=== PATIENT | female | born 1985 | race Caucasian/White ===

== ENCOUNTER 2016-10-11 09:52 | Emergency (ER) | payer BC ==
[~2016-10-11] VITALS: Ht 172.7 cm; Wt 104.0 kg
[~2016-10-11 09:52] MED LIST: FISH OIL 1000MG1 CAP PO; GLUCOPHAGE1000 MG PO; IRON325 M2 PO; LORTAB 5/500 501 TAB PO; MERIBIN5 MG PO; MOTRIN 600600 MG/TAB PO; PENICILLIN V250 MG PO; PRENATAL1 TA7 PO; STOOL SOFTENER100 M2 PO
[2016-10-11 10:10] VITALS: TEMP 98.4
[2016-10-11] MEDS ORDERED: NATURAL IRON65 MG PO (11:30)
[2016-10-11] MEDS ORDERED: PEPCID 20MG TAB20 MG PO (11:32)
[2016-10-11] MEDS ORDERED: ZYRTEC 10MG10 MG PO (11:33)
[2016-10-11 12:00] LABS: BASO % 0.2 % (0.0-2.0); EOS # 0.1 (0.0-0.7); EOS % 1.2 % (0-4.0); GRAN # 6.9 (1.4-6.5); GRAN % 80.3 % (42.2-75.2); LYMPH % 11.4 % (20.0-51.0); MEAN CELL VOLUME 89 fl (80.0-100.0); MEAN CORPUSCULAR HGB CONC 35 g/dl (33.0-37.0); MEAN PLATELET VOLUME 8.6 fl (7.4-10.4); MONO # 0.5 (0.1-0.6); MONO % 5.7 % (1.7-9.3); PLATELET COUNT 220 K/mm3 (130-400); RED BLOOD COUNT 3.63 M/mm3 (4.10-5.30); REDCELL DISTRIBUTION WIDTH-CV 13.7 % (11.5-14.5); WHITE BLOOD COUNT 8.5 K/mm3 (4.8-10.8)
[2016-10-11 12:06] LABS: HEMATOCRIT 32.2 % (37.0-47.0); HEMOGLOBIN 11.2 g/dl (12.5-16.0); MEAN CORPUSCULAR HEMOGLOBIN 31 pg (27.0-31.0)
[2016-10-11 12:15] LABS: ADJUSTED CALCIUM 8.6 mg/dL (8.4-10.2); ALBUMIN 3.7 gm/dL (3.5-5.0); BILIRUBIN,TOTAL 0.7 mg/dL (0.0-1.0); CALCIUM 8.4 mg/dL (8.4-10.2); CREATININE, serum 0.52 mg/dL (0.52-1.25); POTASSIUM 3.5 mmol/L (3.4-5.0)
[2016-10-11 13:50] LABS: PH 6 (5-8); URINE APPEARANCE Cloudy; URINE BACTERIA Rare /hpf; URINE BILIRUBIN Negative (NEGATIVE); URINE BLOOD Negative (NEGATIVE); URINE COLOR Yellow; URINE GLUCOSE Negative (NEGATIVE); URINE KETONE 1+ (NEGATIVE); URINE UROBILINOGEN Negative (NEGATIVE)
[2016-10-11] MEDS ORDERED: MACROBID 1100 MG/CAP PO (13:57)
[2016-10-11 14:14] VITALS: BP 93/54; PULSE 84
== END 2016-10-11 14:14 | disposition home or self-care (01) ==
LOC: COL.ER 09:52
PROVIDERS: Physician Assistant
DX: O23.43 Unspecified infection of urinary tract in pregnancy, third trimester (principal); O21.0 Mild hyperemesis gravidarum; Z3A.29 29 weeks gestation of pregnancy
CPT/HCPCS: J2550; J7030

== ENCOUNTER → 2016-11-26 | Outpatient (CLI) | payer BC ==
[~2016-11-26] MED LIST changes: +IBU800 M1 PO; +MACROBID 1100 MG/CAP PO; +NATURAL IRON65 MG PO; +PEPCID 20MG TAB20 MG PO; +PRILOTC; +ZYRTEC 10MG10 MG PO
== END ==
LOC: LDRO 15:36
DX: Z53.9 Procedure and treatment not carried out, unspecified reason (principal)

== ENCOUNTER 2016-12-22 10:09 | Inpatient (IN) | payer BC ==
[~2016-12-22] VITALS: Ht 172.7 cm; Wt 110.9 kg
[2016-12-22] VITALS (28 sets, daily range): BP systolic 102–140; BP diastolic 56–96; PULSE 85–118; TEMP 97.2–98.4
[~2016-12-22 10:09] MED LIST changes: -IBU800 M1 PO; -PRILOTC
[2016-12-22 11:04] LABS: BASO % 0.3 % (0.0-2.0); EOS # 0.1 (0.0-0.7); EOS % 0.6 % (0-4.0); GRAN # 8.1 (1.4-6.5); GRAN % 72.5 % (42.2-75.2); LYMPH # 2.2 (1.2-3.4); LYMPH % 19.7 % (20.0-51.0); MEAN CELL VOLUME 88 fl (80.0-100.0); MEAN CORPUSCULAR HGB CONC 33 g/dl (33.0-37.0); MEAN PLATELET VOLUME 8.9 fl (7.4-10.4); MONO # 0.7 (0.1-0.6); MONO % 6.2 % (1.7-9.3); PLATELET COUNT 243 K/mm3 (130-400); RED BLOOD COUNT 3.62 M/mm3 (4.10-5.30); REDCELL DISTRIBUTION WIDTH-CV 13.4 % (11.5-14.5); WHITE BLOOD COUNT 11.2 K/mm3 (4.8-10.8)
[2016-12-22] MEDS ORDERED: PRILOTC (11:04)
[2016-12-22 11:11] LABS: HEMATOCRIT 31.8 % (37.0-47.0); HEMOGLOBIN 10.6 g/dl (12.5-16.0); MEAN CORPUSCULAR HEMOGLOBIN 29 pg (27.0-31.0)
[2016-12-23 00:40] VITALS: BP 103/62; PULSE 79
[2016-12-23 05:00] VITALS: BP 93/48; PULSE 82; TEMP 98.2
[2016-12-23 08:15] VITALS: BP 117/73; PULSE 63; TEMP 98.3
[2016-12-23 11:37] VITALS: BP 123/74; PULSE 101; TEMP 98.5
[2016-12-23 16:44] VITALS: BP 120/67; PULSE 101; TEMP 98.3
[2016-12-23 20:00] VITALS: BP 113/67; PULSE 88; TEMP 98.1
[2016-12-24] MEDS ORDERED: IBU800 M1 PO (08:09)
[2016-12-24 08:24] VITALS: BP 113/81; PULSE 96; TEMP 97.8
== END 2016-12-24 16:00 | disposition home or self-care (01) | DRG 775 ==
LOC: OB 10:09 → LDR 10:09 → OB 20:00
PROVIDERS: Obstetrics & Gynecology
PROC: 10E0XZZ Delivery of Products of Conception, External Approach (ICD-10-PCS; principal; 2016-12-22)
PROC: 0KQM0ZZ Repair Perineum Muscle, Open Approach (ICD-10-PCS; 2016-12-22)
DX: O99.824 Streptococcus B carrier state complicating childbirth (principal); O70.1 Second degree perineal laceration during delivery; Z3A.39 39 weeks gestation of pregnancy; Z37.0 Single live birth
CPT/HCPCS: J2540; J2590; J7120

== ENCOUNTER → 2019-06-09 | Outpatient (CLI) | payer BC ==
[~2019-06-09] MED LIST changes: +IBU800 M1 PO; +PRILOTC
== END ==
LOC: COL.RAD 12:01
DX: M77.41 Metatarsalgia, right foot (principal)

== ENCOUNTER 2023-12-10 23:27 | Inpatient (IN) | payer BC ==
[~2023-12-10] VITALS: Ht 172.7 cm; Wt 115.0 kg
--- NOTE | 2023-12-10 23:40 | NUR ---
G5L2. 37.1. Ambulatory to LDR 5 with spouse. Clean gown on. EFM and TOCO explained and applied. Pt states she thinks her water broke at 2250. Reports clear fluid. Denies having any consistent contractions or vaginal bleeding. Reports good movement. Plan of care explained. 2353: called and updated on pt's status. See physican notification. Admit orders received. Pt updated on plan of care. 0030: IV started and labs obtained via IV site. Pt stating she is starting to feel some cramping and would like to wait on starting pitocin. 0215: on unit and updated on pt's request on waiting with starting pitocin. 0247: SVE /-3. Pt wanting to ambulate in hallway prior to starting pitocin.
[2023-12-11] VITALS (36 sets, daily range): BP systolic 101–132; BP diastolic 55–87; PULSE 66–120; TEMP 97.3–98.1
[2023-12-11] MEDS ORDERED: IRON 27 MG PO (00:20)
[2023-12-11] MEDS ORDERED: PRENATAL MVI PO (00:21)
[2023-12-11] MEDS ORDERED: LR 1,000 ML IV SCH (00:30)
[2023-12-11] MEDS ORDERED: LR & Oxytocin 500 ML IV SCH (00:30)
[2023-12-11 01:08] LABS: BASO % 0.3 % (0.0-2.0); EOS # 0.1 K/mm3 (0.0-0.7); EOS % 0.7 % (0.0-4.0); GRAN % 73.1 % (42.2-75.2); HEMOGLOBIN 10.8 g/dl (12.5-16.0); LYMPH # 1.9 K/mm3 (1.2-3.4); LYMPH % 19.4 % (20.0-51.0); MEAN CELL VOLUME 88 fl (80.0-100.0); MEAN CORPUSCULAR HEMOGLOBIN 29 pg (27-31); MEAN CORPUSCULAR HGB CONC 33 g/dl (33.0-37.0); MONO # 0.6 K/mm3 (0.1-0.6); MONO % 6.1 % (1.7-9.3); PLATELET COUNT 219 K/mm3 (130-400); RED BLOOD COUNT 3.68 M/mm3 (4.10-5.30); REDCELL DISTRIBUTION WIDTH-CV 13.9 % (11.5-14.5)
[2023-12-11 01:09] LABS: HEMATOCRIT 32.4 % (37.0-47.0)
--- NOTE | 2023-12-11 04:17 | NUR ---
Pitocin explained and started at 2mu/hr per protocol. Questions answered. Call light within reach.
--- NOTE | 2023-12-11 06:00 | NUR ---
Pt requesting an epidural. LR bolus infusing. Shaheen FILM MAKER notified.
[2023-12-11] MEDS ORDERED: ROPivacaine PF 0.2% 200 ML IV ONE (06:17)
[2023-12-11] MEDS ORDERED: NS 10 ML IV ONE (06:18)
--- NOTE | 2023-12-11 06:45 | NUR ---
Oseas [employer] SAL[employer] PROFESSIONAL to bedside at 0620. Patient repositioned sitting at bedside for epidural placement. Test dose given at 0632. Patient tolerated well. FHM tracing maternal heart rate during this time. Patient repositioned low fowlers. Denies needs at this time.
[2023-12-11] MEDS ORDERED: Ondansetron 4 MG/2 ML VIAL IV PRN (07:00)
[2023-12-11] MEDS ORDERED: diphenhydrAMINE 25 MG CAP PO PRN (07:00)
[2023-12-11] MEDS ORDERED: Naloxone 0.4 MG/ML VIAL IV PRN ×2 (07:00→10:15)
[2023-12-11] MEDS ORDERED: ePHEDrine 50 MG/10 ML VIAL IV PRN (07:00)
[2023-12-11] MEDS ORDERED: diphenhydrAMINE 50 MG/ML 1 ML VIAL IV PRN (07:00)
--- NOTE | 2023-12-11 08:30 | NUR ---
Maternal blood pressure dropped following epidural. IVF open wide, patient positioned WL. Recurrent lates continue. Ephedrine given at this time.
--- NOTE | 2023-12-11 09:45 | NUR ---
Dr. Viera to bedside at 0930. SVE per physician C/100/-1. Patient repositioned for delivery. Pushing with contractions. Viable female infant delivered at 0938. Cord clamped by Dr. Viera and cut by father. Care of transferred to Fifi RN of nursery. Placenta delivered spontaneously at 0941. Repair of 2nd degree laceration by Dr. Viera. Pericare provided. Clean bed pad and ice pack placed. Patient repositioned for comfort.
[2023-12-11] MEDS ORDERED: Loratadine 10 MG TAB PO PRN (10:00)
[2023-12-11] MEDS ORDERED: Magnes Hydrox (MOM) 80 MG/ML 30 ML CUP PO PRN (10:00)
[2023-12-11] MEDS ORDERED: Phenylephrine/Mineral Oil/Petrolatum 57 GM TUBE RC PRN (10:15)
[2023-12-11] MEDS ORDERED: Witch Hazel 50% Pads Bulk TUB TP PRN (10:15)
[2023-12-11] MEDS ORDERED: Measles/Mumps/Rubella Virus Vaccine Live w Diluent 0.5 ML VIAL SQ SCH (10:15)
[2023-12-11] MEDS ORDERED: Acetaminophen 500 MG TAB PO SCH (10:15)
[2023-12-11] MEDS ORDERED: Mag/Al Hydrox/Simeth Susp 30 ML CUP PO PRN (10:15)
[2023-12-11] MEDS ORDERED: oxyCODONE 5 MG TAB PO PRN (10:15)
[2023-12-11] MEDS ORDERED: Ibuprofen 800 MG TAB PO SCH (10:15)
[2023-12-11] MEDS ORDERED: Sennosides/Docusate 8.6-50 MG TAB PO SCH (17:00)
[2023-12-11] MEDS ORDERED: metFORMIN XR 500 MG TAB PO SCH (17:00)
[2023-12-11] MEDS ORDERED: traZODone 50 MG TAB PO PRN (21:00)
[2023-12-12 00:35] VITALS: BP 108/74; PULSE 86; TEMP 97.9
[2023-12-12 04:40] VITALS: BP 112/59; PULSE 84; TEMP 98.1
[2023-12-12 07:49] VITALS: BP 10/75; PULSE 81; TEMP 97.7
== END 2023-12-12 13:45 | disposition home or self-care (01) | DRG 805 ==
LOC: LDRO 23:27 → LDR 12-11 00:26 → OB 12-11 13:43
PROVIDERS: ADMIT Obstetrics & Gynecology
PROC: 10E0XZZ Delivery of Products of Conception, External Approach (ICD-10-PCS; principal; 2023-12-11)
PROC: 0KQM0ZZ Repair Perineum Muscle, Open Approach (ICD-10-PCS; 2023-12-11)
DX: O99.02 Anemia complicating childbirth (principal); O24.12 Pre-existing type 2 diabetes mellitus, in childbirth; Z37.0 Single live birth; O99.284 Endocrine, nutritional and metabolic diseases complicating childbirth; O99.214 Obesity complicating childbirth; Z3A.37 37 weeks gestation of pregnancy; O70.1 Second degree perineal laceration during delivery; E78.5 Hyperlipidemia, unspecified; E88.810 Metabolic syndrome
CPT/HCPCS: J2590; J2795; J7120